=== PATIENT | female | born 1970 | race Two or more races ===

== ENCOUNTER 2021-07-01 15:44 | Emergency (ER) | payer SELFPAY ==
[~2021-07-01] VITALS: Ht 152.4 cm; Wt 81.6 kg
[2021-07-01] MEDS ORDERED: cefTRIAXone SOD 1,000 MG VL IM ONE (17:00)
[2021-07-01] MEDS ORDERED: ACETAMINOPHEN 500 MG TAB PO ONE (17:00)
[2021-07-01] MEDS ORDERED: ACET-1080 PO (17:43)
[2021-07-01] MEDS ORDERED: AMOX-277 PO (17:43)
[2021-07-01 17:50] VITALS: BP 132/88
== END 2021-07-01 17:51 | disposition home or self-care (01) ==
LOC: ER 15:44
DX: H66.93 Otitis media, unspecified, bilateral (principal); J03.90 Acute tonsillitis, unspecified; E11.9 Type 2 diabetes mellitus without complications
CPT/HCPCS: 71046; 96372; 99283; J0696